=== PATIENT | male | born 1995 | race Caucasian/White ===

== ENCOUNTER 2016-10-18 20:18 | Emergency (ER) | payer SELFPAY ==
[~2016-10-18] VITALS: Ht 177.8 cm; Wt 90.7 kg
--- NOTE | 2016-10-18 20:25 | NUR ---
BIBA TO ER BED 4
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
--- NOTE | 2016-10-18 20:28 | NUR ---
[place] [employer] AT BEDSIDE
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
[2016-10-18 20:32] VITALS: BP 136/59
--- NOTE | 2016-10-18 20:48 | NUR ---
Patient being evaluated by physician at bedside.
[2016-10-18] MEDS ORDERED: BACITRACIN OINT 500 UNITS/GM PKT TP ONE (21:03)
--- NOTE | 2016-10-18 21:14 | NUR ---
PT JUST LEFT FOR CT VIA [facility] ACCOMPANIED BY DEYSI SINHA AND EZEQUIEL FRANCISCO
--- NOTE | 2016-10-18 21:30 | NUR ---
PT RETURN FROM CT
--- NOTE | 2016-10-18 23:13 | NUR ---
PATIENT BIB [place] [employer]. PATIENT EXAMINED BY DR. VENTURA. PATIENT MEDICALLY CLEARED AND RELEASED IN CUSTODY IN STABLE CONDITION. ORIGINAL PRE-BOOK FORM GIVEN TO OFFICER KEESHA.
[2016-10-18 23:14] VITALS: BP 127/71
== END 2016-10-18 23:14 ==
LOC: MED 20:18
DX: S01.81XA Laceration without foreign body of other part of head, initial encounter (principal); W21.89XA Striking against or struck by other sports equipment, initial encounter; Y93.89 Activity, other specified; Y92.830 Public park as the place of occurrence of the external cause; Y99.8 Other external cause status
CPT/HCPCS: 70450; 99284